=== PATIENT | female | born 1995 | race Two or more races ===

== ENCOUNTER 2019-06-27 16:50 | Emergency (ER) | payer OTHER ==
[2019-06-27 17:40] VITALS: BP 123/69
[2019-06-27] MEDS ORDERED: ACETAMINOPHEN 325 MG TABLET PO ONE (17:41)
[2019-06-27] MEDS ORDERED: ONDANSETRON 4 MG TAB.RAPDIS PO ONE (17:41)
[2019-06-27] MEDS ORDERED: LORATADINE 10 MG TABLET PO ONE (17:41)
--- NOTE | 2019-06-27 17:46 | ER Document Report ---
ED Headache - General Chief Complaint: Headache >24 hrs old Stated Complaint: HEADACHE Time Seen by Provider: 06/27/19 17:38 Mode of Arrival: Ambulatory Information source: Patient Notes: 23-year-old female presented to ED for complaint of headache. She does have signs and symptoms of upper respiratory infection and she is 20 weeks . She states she did take 2 Tylenol a couple hours ago. She states [place] [facility] [place] She states she has had a headache off and on for 3 days. She states she has had Tylenol twice during those 3 days to Tylenol each time. I have discussed with her after doing her assessment that I would give her 1 more Tylenol some Claritin and Zofran now but she was to call her [facility] tomorrow to schedule a follow-up visit. Patient is alert oriented respirations regular nonlabored speaking in full sentences. - HPI Patient complains to provider of: Headache, "Migraine" Patient reports: Hx chronic headaches, Other - 20 weeks Onset: Other Onset was: Gradual Timing: Better Quality of pain: Other - Headache feels heavy Severity: Moderate Pain Level: 3 Associated symptoms: Other - Runny nose Exacerbated by: denies: Light, Noise, Movement, Position Similar symptoms previously: Yes Recently seen / treated by doctor: Yes - Related Data Allergies/Adverse Reactions: No Known Allergies Allergy (Verified 06/27/19 17:47) Past Medical History - General Information source: Patient - Social History Smoking Status: Never Smoker Frequency of alcohol use: None Drug Abuse: None Occupation: None Lives with: Family Family History: Reviewed & Not Pertinent - Past Medical History Cardiac Medical History: Reports: None Pulmonary Medical History: Reports: None EENT Medical History: Reports: None Neurological Medical History: Reports: Hx Migraine Endocrine Medical History: Reports: None Renal/ Medical History: Reports: None Malignancy Medical History: Reports: None GI Medical History: Reports: None Musculoskeletal Medical History: Reports None Skin Medical History: Reports None Psychiatric Medical History: Reports: None Traumatic Medical History: Reports: None Infectious Medical History: Reports: None Surgical Hx: Negative Past Surgical History: Reports: None - Immunizations Immunizations up to date: Yes Hx Diphtheria, Pertussis, Tetanus Vaccination: Yes Review of Systems - Review of Systems Constitutional: Recent illness EENT: Nose discharge Cardiovascular: No symptoms reported Respiratory: No symptoms reported Gastrointestinal: No symptoms reported Genitourinary: No symptoms reported Female Genitourinary: No symptoms reported Musculoskeletal: No symptoms reported Skin: No symptoms reported Hematologic/Lymphatic: No symptoms reported Neurological/Psychological: Headaches. denies: Weakness, Gait changes, Numbness, Tingling -: Yes All other systems reviewed and negative Physical Exam - Vital signs Vitals: Temp Pulse Resp BP Pulse Ox 98.7 F 76 18 123/69 98 06/27/19 17:36 06/27/19 17:36 06/27/19 17:36 06/27/19 17:36 06/27/19 17:36 Interpretation: Normal - General General appearance: Appears well, Alert - HEENT Head: Normocephalic, Atraumatic Eyes: Normal Pupils: PERRL Ears: Normal, Tragus laceration Tympanic membrane: Normal Sinus: Normal Nasal: Purulent discharge, Swelling Mouth/Lips: Normal Mucous membranes: Normal Pharynx: Post nasal drainage Neck: Normal - Respiratory Respiratory status: No respiratory distress Chest status: Nontender Breath sounds: Normal Chest palpation: Normal - Cardiovascular Rhythm: Regular Heart sounds: Normal auscultation Murmur: No - Abdominal Inspection: Normal Distension: No distension Bowel sounds: Normal Tenderness: Nontender Organomegaly: No organomegaly - Back Back: Normal, Nontender - Extremities General upper extremity: Normal inspection, Nontender, Normal color, Normal ROM, Normal temperature General lower extremity: Normal inspection, Nontender, Normal color, Normal ROM, Normal temperature, Normal weight bearing. No: Soraya's sign - Neurological Neuro grossly intact: Yes Cognition: Normal Orientation: AAOx4 Jorge Coma Scale Eye Opening: Spontaneous Jorge Coma Scale Verbal: Oriented Stella Coma Scale Motor: Obeys Commands Jorge Coma Scale Total: 15 Speech: Normal Motor strength normal: LUE, RUE, LLE, RLE Sensory: Normal - Psychological Associated symptoms: Normal affect, Normal mood - Skin Skin Temperature: Warm Skin Moisture: Dry Skin Color: Normal Course - Re-evaluation Re-evalutation: 06/27/19 20:41 After performing a Medical Screening Examination, I estimate there is LOW risk for ACUTE CORONARY SYNDROME, RESPIRATORY FAILURE, SEPSIS OR MENINGITIS, thus I consider the discharge disposition reasonable. I have reevaluated this patient multiple times and no significant life threatening changes are noted. The patient and I have discussed the diagnosis and risks, and we agree with discharging home with close follow-up. We also discussed returning to the Emergency Department immediately if new or worsening symptoms occur. We have discussed the symptoms which are most concerning (e.g., changing or worsening pain, trouble swallowing or breathing, neck stiffness, fever) that necessitate immediate return. - Vital Signs Vital signs: Temp Pulse Resp BP Pulse Ox 98.7 F 76 18 123/69 98 06/27/19 17:36 06/27/19 17:36 06/27/19 17:36 06/27/19 17:36 06/27/19 17:36 Discharge - Discharge Clinical Impression: URI (upper respiratory infection) Qualifiers: URI type: unspecified viral URI Qualified Code(s): J06.9 - Acute upper respiratory infection, unspecified Headache Qualifiers: Headache type: unspecified Headache chronicity pattern: unspecified pattern Intractability: not intractable Qualified Code(s): R51 - Headache Condition: Stable Disposition: HOME, SELF-CARE Additional Instructions: Headache The physician does not feel that the headache you are experiencing has a serious underlying cause. Most headaches are due to emotional stress, with resultant muscle tension (tension headache). Occasionally, headaches are secondary to changes in the blood vessels of the scalp (vascular headache and migraine headache). Sometimes, a headache is the first symptom of another developing illness, such as a viral infection. You have no evidence of stroke, bleeding, meningitis, or other serious cause of your headache. The treatment of headaches varies with the severity and cause of the pain. Not all headaches need pain shots. In fact, there is evidence that using narcotics for headaches may make them worse in the long run. The physician will determine the therapy that's in your best interest. If you develop a fever, if the headache is different from any you've previously experienced, or if the headache progressively worsens, then call your physician at once or go to the emergency room. You have been Claritin 10 mg Tylenol 325 mg. These are all [id number] medications for cough cold congestion. Please use saline spray to your nose 2 sprays each nostril. You could also use salt soda solution gargles. These will help to remove the drainage from the back your throat. Salt and soda solution gargle 1 quart of water 1 tablespoon of salt 1 teaspoon of baking soda Mixed 3 ingredients together and boil for 1 minute Placed in a covered quart jar Use 1/2 ounce of cold solution to gargle 3 times a day USE OF ACETAMINOPHEN (Tylenol): Acetaminophen may be taken for pain relief or fever control. It's much safer than aspirin, offering a wider range of "safe" dosages. It is safe during . Some brand names are Tylenol, Panadol, Datril, Anacin 3, Tempra, and Liquiprin. Acetaminophen can be repeated every four hours. The following are maximum recommended dosages: >89 pounds or adults 650 mg to 900 mg Acetaminophen can be repeated every four hours. Maximum dose not to exceed 4000 mg a day. Antinausea Medication You have been given a medication to suppress nausea and vomiting. This type of medication can be given as a shot, pill, or suppository. It will usually last for many hours. Pills and shots usually last six to eight hours, suppositories last about 12 hours. For the typical illness, only one or two doses of the medication may be necessary. Mild lightheadedness may occur. This type of medicine can cause drowsiness. Do not drive or operate dangerous machinery while under its influence. Do not mix with alcohol. See your doctor at once if you have muscle spasms or tightness, or u ncontrollable motions (particularly of the neck, mouth, or jaw). Persistent vomiting or severe lightheadedness should also be evaluated by the physician. FOLLOW-UP CARE: If you have been referred to a physician for follow-up care, call the physicians office for an appointment as you were instructed or within the next two days. If you experience worsening or a significant change in your symptoms, notify the physician immediately or return to the Emergency Department at any time for re-evaluation. Please follow-up with your [facility] in the next 24 to 48 hours and get a follow-up visit due to your headache during . Your blood pressure was 123/69. You do have a upper respiratory infection with a headache. You have been treated with Claritin and Tylenol and Zofran.
== END 2019-06-27 18:00 | disposition home or self-care (01) ==
LOC: ER 16:50
DX: O26.892 Other specified pregnancy related conditions, second trimester (principal); J06.9 Acute upper respiratory infection, unspecified; R51 Headache; Z3A.20 20 weeks gestation of pregnancy
CPT/HCPCS: 99283; S0119

== ENCOUNTER 2019-09-14 14:27 | Inpatient (IN) | payer OTHER ==
[2019-09-14] MEDS ORDERED: RINGERS SOLUTION,LACTATED 1,000 ML IV ONE (14:43)
[2019-09-14 15:22] LABS: ABSOLUTE LYMPHOCYTES (AUTO) 2.3 10^3/uL (0.5-4.7); ABSOLUTE MONOCYTES (AUTO) 1.5 10^3/uL (0.1-1.4); ABSOLUTE NEUT (AUTO) 15.3 10^3/uL (1.7-8.2); BASOPHILS % (AUTO) 0.1 % (0-2); HEMATOCRIT 32.6 % (36.0-47.0); HEMOGLOBIN 11.3 g/dL (12.0-15.5); LYMPHOCYTES % (AUTO) 11.9 % (13-45); MEAN CORPUSCULAR HEMOGLOBIN 30.1 pg (27.0-33.4); MEAN CORPUSCULAR HGB CONC 34.7 g/dL (32.0-36.0); MEAN CORPUSCULAR VOLUME 87 fl (80-97); MONOCYTES % (AUTO) 7.7 % (3-13); PLATELET COUNT 338 10^3/uL (150-450); RED BLOOD COUNT 3.76 10^6/uL (3.72-5.28); RED CELL DISTRIBUTION WIDTH 12.8 % (11.5-14.0); SEGMENTED NEUTROPHILS % (AUTO) 80.3 % (42-78); TOTAL CELLS COUNTED % (AUTO) 100 %
[2019-09-14 15:43] LABS: ALBUMIN 3.4 g/dL (3.5-5.0); ALKALINE PHOSPHATASE 115 U/L (38-126); ANION GAP 7 (5-19); ASPARTATE AMINO TRANSFERASE 43 U/L (14-36); BILIRUBIN,TOTAL 0.2 mg/dL (0.2-1.3); BLOOD UREA NITROGEN 11 mg/dL (7-20); CALCIUM 8.8 mg/dL (8.4-10.2); CARBON DIOXIDE 23 mmol/L (22-30); CHLORIDE 107 mmol/L (98-107); GLUCOSE 95 mg/dL (75-110); POTASSIUM 4.6 mmol/L (3.6-5.0); TOTAL PROTEIN 6.7 g/dL (6.3-8.2); URIC ACID 5.8 mg/dL (2.5-6.2)
--- NOTE | 2019-09-14 15:56 | Admission Physical ---
Datetime Report Generated by CPN: 09/14/2019 15:55 CURRENT ADMISSION Chief Complaint: Other Chief Complaint Other: at 33.0 wks EGA who was a transfer from [facility] for NICU availability as they feel she will requrie deliver for preeclampsia with severe features and their NICU is on diversion. Pt is asymptomatic currently. NO BELTRAN, CP, SOB, RUQ, N/V or vision changes. Reports good FM Denies hx of elevated blood pressure 20 weeks. History one SAB Admit Impression : Intact Membranes; Medical Complication Admit Plan: Admit to Unit ALLERGIES Medication Allergies: No Medication Allergies: No Known Allergies (09/14/2019) Latex: No Latex Allergies Food Allergies: none Environmental Allergies: none OBSTETRICAL HISTORY : 2 Para: 0 Term: 0 : 0 SAB: 1 IAB: 0 Ectopic: 0 Livin Cesareans: 0 VBACs: 0 Multiple Births: 0 Gestational Diabetes: No Rh Sensitization: No Incompetent Cervix: No JULIANA: No Infertility: No ART Treatment: No Uterine Anomaly: No IUGR: No Hx Previous C/S: No Macrosomia: No Hx Loss/Stillborn: No PIH: No Hx : No Placenta Previa/Abruption: No Depression/PP Depression: No PTL/PROM: No Post Hemorrhage: No Current Procedures: Ultrasound; NST Obstetrical History Comments: G1- SAB G2- Current.pre-eclampsia SEE RECORDS Alcohol: No Marijuana : No Cocaine: No Other Illicit Drugs: No Cigarettes: Never Smoker. [id number] MEDICAL HISTORY Diabetes: No Blood Transfusion: No Pulmonary Disease (Asthma, TB): No Breast Disease: No Hypertension: No [employer] Surgery: No Heart Disease: No Hosp/Surgery: No Autoimmune Disorder: No Anesthetic Complications: No Kidney Disease: No Abnormal Pap Smear: No Neuro/Epilepsy: No Psychiatric Disorders: No Other Medical Diseases: No Hepatitis/Liver Disease: No Significant Family History: No Varicosities/Phlebitis: No Trauma/Violence : No Thyroid Dysfunction: No INFECTIOUS HISTORY Gonorrhea: No Genital Herpes: No Chlamydia: No Tuberculosis: No Syphilis: No Hepatitis: No HIV/AIDS Exposure: No Rash or Viral Illness: No HPV: No PHYSICAL EXAM General: Normal HEENT: Normal Neurologic: Normal Thyroid: Normal Heart: Normal Lungs: Normal Breast: Normal Back: Normal Abdomen: Normal Genitourinary Exam: Normal Extremities: Normal DTRs: Normal Pelvic Type: Adequate Physical Exam Comments: Lungs clear bilaterally, heart rate normal, S1S2, RRR. Reflexes 3/4 on right and 2/4 on left. No clonus Abdomen soft, NTTP. No pain in RUQ on palpation Vital Signs: Reviewed FETUS A Monitoring: External US FHR- Baseline: 130 Variability: Moderate 6-25bpm Accelerations: 15X15 Decelerations: None Presentation: Compound Admit Comment: at 33.0 wks, a transfer from [facility] d/t they are on NICU diversion and she has had elvated b/p's and preeclampsia -Admit to LDR -CEFM and toco -maintain IV access -Had 24 hours Mag sulfate IV but d/c yesterday -Repeat PIH labs now -P:C ratio from [facility] was 0.22 and no 24 hour urine protein -Serial b/p's every hour. On admission b/p in 140-150s systolic and normal diastolics -GBS negative -S/p Betamenthasone x2 , last dose 09/13/19 at 1600 -Continue close observation while 24 hour being completed. If preE with severe features and remains asymptomic with no severe pressures will plan delivery after 34 wks EGA PLANS FOR LABOR AND DELIVERY Labor and Delivery: None Pain Management: Epidural Feeding Preference: Both Benefit of Breast Feed Discussed: Yes Circumcision: N/A INFORMED CONSENT Informed Consent Obtained: Vaginal Delivery; Risks, Benefits and Alternatives Discussed Signature: with User ID: Mode : with User ID: Mode
[2019-09-14] MEDS: RINGERS SOLUTION,LACTATED 1,000 ML IV PRN (17:18)
--- NOTE | 2019-09-14 17:38 | Warning Signs in Babies ---
VOD Warning Signs Datetime Report Generated by N: 09/14/2019 17:38 VOD#[id number] -Warning Signs in Babies: Viewed with Parent(s)/Family (09/14/2019 17:38:Jonathan Kelly RN)
--- NOTE | 2019-09-14 19:43 | Non Stress Test Report ---
Non Stress Test Datetime Report Generated by CPN: 09/14/2019 19:43 DEMOGRAPHIC EGA NST: 33.0 INDICATION Indication for Study (NST) Other: Severe Pre-E from [employer] MONITORING Monitor Explained: Monitor Explained; Test Explained; Patient Verbalized Understanding Time on Monitor: 09/14/2019 14:32 Time off Monitor: 09/14/2019 19:37 NST Duration: 305 NST INTERVENTIONS NST Interventions: PO Hydration; Meal Given; Reposition Patient Physician Notified NST: Dr. Mckenzie BABY A: [id number] BABY A Movement : Present Contraction Frequency : Irregular FHR Baseline : 135 Accelerations : 15X15 Decelerations : None Variability : Moderate 6-25bpm NST Review: Meets Criteria for Reactive NST NST Review and Verified By : Richy NAVAT Results: Reactive NST REPORT Report Trigger: Send Report
[2019-09-15] MEDS ORDERED: LABETALOL HCL 200 MG TABLET PO SCH ×2 (04:00→14:00)
[2019-09-15] MEDS ORDERED: LABETALOL HCL 200 MG TABLET ONE ×2 (04:05→09:02)
[2019-09-15] MEDS ORDERED: LABETALOL HCL INJ 20 MG/4 ML DISP.SYRIN IV ONE ×4 (04:05→05:51)
[2019-09-15] MEDS: RINGERS SOLUTION,LACTATED 1,000 ML IV PRN (04:18)
[2019-09-15 06:30] LABS: ABSOLUTE LYMPHOCYTES (AUTO) 2.9 10^3/uL (0.5-4.7); ABSOLUTE MONOCYTES (AUTO) 1.5 10^3/uL (0.1-1.4); BASOPHILS % (AUTO) 0.2 % (0-2); EOSINOPHILS % (AUTO) 0.1 % (0-6); HEMATOCRIT 32.7 % (36.0-47.0); HEMOGLOBIN 11.2 g/dL (12.0-15.5); LYMPHOCYTES % (AUTO) 17.6 % (13-45); MEAN CORPUSCULAR HGB CONC 34.2 g/dL (32.0-36.0); MEAN CORPUSCULAR VOLUME 88 fl (80-97); MONOCYTES % (AUTO) 9.1 % (3-13); PLATELET COUNT 330 10^3/uL (150-450); RED BLOOD COUNT 3.72 10^6/uL (3.72-5.28); RED CELL DISTRIBUTION WIDTH 12.6 % (11.5-14.0); TOTAL CELLS COUNTED % (AUTO) 100 %; WHITE BLOOD COUNT 16.5 10^3/uL (4.0-10.5)
[2019-09-15 06:57] LABS: ALBUMIN 3.1 g/dL (3.5-5.0); ALKALINE PHOSPHATASE 112 U/L (38-126); ANION GAP 8 (5-19); ASPARTATE AMINO TRANSFERASE 44 U/L (14-36); BILIRUBIN,DIRECT 0.1 mg/dL (0.0-0.4); BILIRUBIN,TOTAL 0.4 mg/dL (0.2-1.3); BLOOD UREA NITROGEN 10 mg/dL (7-20); CALCIUM 8.2 mg/dL (8.4-10.2); CARBON DIOXIDE 21 mmol/L (22-30); CHLORIDE 108 mmol/L (98-107); GLUCOSE 78 mg/dL (75-110); POTASSIUM 4.2 mmol/L (3.6-5.0); TOTAL PROTEIN 6.2 g/dL (6.3-8.2); URIC ACID 5.1 mg/dL (2.5-6.2)
[2019-09-15] MEDS ORDERED: HYDRALAZINE HCL INJ/PF 20 MG/1 ML SDV ONE (07:01)
[2019-09-15] MEDS ORDERED: NIFEDIPINE 30 MG TAB.ER.24 PO ONE ×3 (07:03→08:03)
[2019-09-15] MEDS ORDERED: HYDRALAZINE HCL INJ/PF 20 MG/1 ML SDV IV ONE (08:00)
[2019-09-15] MEDS ORDERED: NIFEDIPINE 30 MG TAB.ER.24 PO SCH (08:00)
--- NOTE | 2019-09-15 08:26 | Non Stress Test Report ---
Non Stress Test Datetime Report Generated by CPN: 09/15/2019 08:26 DEMOGRAPHIC EGA NST: 33.1 INDICATION Indication for Study (NST) Other: Dr orders/ HTN VITAL SIGNS Temperature - NST: 97.4 Pulse - NST: 67 RESP - NST: 18 NBPSYS NST: 151 NBPDIA NST: 89 MONITORING Monitor Explained: Monitor Explained; Test Explained; Patient Verbalized Understanding Time on Monitor: 09/15/2019 08:00 Time off Monitor: 09/15/2019 08:21 NST Duration: 21 NST INTERVENTIONS NST Interventions: PO Hydration Physician Notified NST: Dr Saldivar BABY A Movement : Present Contraction Frequency : none FHR Baseline : 135 Accelerations : 15X15 Decelerations : None Variability : Moderate 6-25bpm NST Review: Meets Criteria for Reactive NST NST Review and Verified By : Vicente Flores RN NST Results: Reactive NST REPORT Report Trigger: Send Report
[2019-09-15] MEDS: LABETALOL HCL 200 MG TABLET PO SCH ×3 (09:05→21:53)
--- NOTE | 2019-09-15 13:01 | RADIOLOGY REPORT (SQ) ---
EXAM DESCRIPTION: U/S OB LIMITED IMAGES COMPLETED DATE/TIME: 09/15/2019 12:42 pm REASON FOR STUDY: presentation, weight, fluid COMPARISON: None. TECHNIQUE: Limited transabdominal grayscale ultrasound for evaluation of specific requested obstetri skye parameters. LIMITATIONS: None. FINDINGS: EGA: 33 week 4 day. EPIFANIO: 10/30/2019. EFW: 2135 g. PERCENTILE: 44%. MARTIN: 15.4 cm. FHR: 135 beats per minute. PRESENTATION: Cephalic. PLACENTA: Not assessed ANATOMY: Not assessed OTHER: No other significant findings. IMPRESSION: LIMITED OBSTETRICAL ULTRASOUND WITH MEASURED PARAMETERS DELINEATED ABOVE. Trimester of : Third trimester - 28 weeks to delivery. TECHNICAL DOCUMENTATION: JOB ID: [id number] 2010 [employer]- All Rights Reserved Reading location - IP/workstation name: [email or web address]
[2019-09-15 17:24] LABS: URINE PROTEIN 48.2 mg/dL (<12)
[2019-09-15 17:30] LABS: 24 HOUR URINE PROTEIN RESULT 1735 mg/day (42-225); URINE AMPHETAMINES SCREEN NEGATIVE; URINE BARBITURATES SCREEN NEGATIVE; URINE BENZODIAZEPINES SCREEN NEGATIVE; URINE COCAINE SCREEN NEGATIVE; URINE MARIJUANA (THC) SCREEN NEGATIVE; URINE METHADONE SCREEN NEGATIVE; URINE PHENCYCLIDINE SCREEN NEGATIVE
[2019-09-15 17:34] LABS: UR PRO/CREAT RATIO RESULT 0.6 mg/mg (0.0-0.2); URINE CREATININE 90.3 mg/dL (16-327); URINE PROTEIN 49.9 mg/dL (<12)
[2019-09-16] MEDS: LABETALOL HCL 200 MG TABLET PO SCH ×3 (05:14→23:09)
[2019-09-16] MEDS: NIFEDIPINE 30 MG TAB.ER.24 PO SCH (09:46)
[2019-09-16 11:56] LABS: HEMATOCRIT 32.6 % (36.0-47.0); HEMOGLOBIN 11.1 g/dL (12.0-15.5); MEAN CORPUSCULAR HGB CONC 34.1 g/dL (32.0-36.0); MEAN CORPUSCULAR VOLUME 88 fl (80-97); PLATELET COUNT 292 10^3/uL (150-450); RED BLOOD COUNT 3.72 10^6/uL (3.72-5.28); RED CELL DISTRIBUTION WIDTH 12.6 % (11.5-14.0); WHITE BLOOD COUNT 13.6 10^3/uL (4.0-10.5)
[2019-09-16] MEDS: PRENATAL VITAMIN W DHA CAPSULE PO SCH (12:02)
[2019-09-16 12:15] LABS: ALKALINE PHOSPHATASE 106 U/L (38-126); ANION GAP 5 (5-19); ASPARTATE AMINO TRANSFERASE 30 U/L (14-36); BILIRUBIN,DIRECT 0.1 mg/dL (0.0-0.4); BILIRUBIN,TOTAL 0.3 mg/dL (0.2-1.3); BLOOD UREA NITROGEN 11 mg/dL (7-20); CALCIUM 8.2 mg/dL (8.4-10.2); CARBON DIOXIDE 22 mmol/L (22-30); CHLORIDE 107 mmol/L (98-107); GLUCOSE 74 mg/dL (75-110); POTASSIUM 4.3 mmol/L (3.6-5.0); URIC ACID 4.9 mg/dL (2.5-6.2)
[2019-09-16 12:26] LABS: ABSOLUTE LYMPHOCYTES# (MANUAL) 3.4 10^3/uL (0.5-4.7); ABSOLUTE MONOCYTES # (MANUAL) 1.8 10^3/uL (0.1-1.4); BASOPHILS % (MANUAL) 0 % (0-2); EOSINOPHILS % (MANUAL) 1 % (0-6); LYMPHOCYTES % (MANUAL) 21 % (13-45); MONOCYTES % (MANUAL) 13 % (3-13); SEGMENTED NEUTROPHILS % (MAN) 61 % (42-78); TOTAL CELLS COUNTED 100
[2019-09-16 12:27] LABS: ANISOCYTOSIS SLIGHT; POLYCHROMASIA SLIGHT
[2019-09-16 12:28] LABS: PLATELET COMMENT ADEQUATE
--- NOTE | 2019-09-16 17:51 | PDOC PROGRESS REPORT ---
Subjective Progress Note for:: 09/16/19 Subjective:: denies BELTRAN/blurry vision/RUQ pain. Reason For Visit: IUP 33 WEEKS ELEVATED BLOOD PRESSURES IN Physical Exam - Physical Exam Vital Signs: Temp Pulse Resp BP Pulse Ox 98.5 F 85 18 142/78 H 100 09/16/19 15:15 09/16/19 15:15 09/16/19 15:15 09/16/19 15:15 09/16/19 15:15 Intake & Output 09/15/19 09/16/19 09/17/19 06:59 06:59 06:59 Intake Total 1000 1000 Balance 1000 1000 Weight 98.6 kg 104 kg General appearance: PRESENT: no acute distress, well-developed, well-nourished Head exam: PRESENT: atraumatic, normocephalic Respiratory exam: PRESENT: clear to auscultation jamey, symmetrical, unlabored Pulses: PRESENT: normal dorsalis pedis pul, +2 pedal pulses bilateral Vascular exam: PRESENT: normal capillary refill GI/Abdominal exam: PRESENT: normal bowel sounds, soft. ABSENT: distended, guarding, mass, organolmegaly, rebound, tenderness Rectal exam: PRESENT: deferred Extremities exam: PRESENT: full ROM. ABSENT: calf tenderness, clubbing, pedal edema Musculoskeletal exam: PRESENT: ambulatory Neurological exam: PRESENT: alert, awake, oriented to person, oriented to place, oriented to time, oriented to situation, CN II-XII grossly intact. ABSENT: motor sensory deficit Psychiatric exam: PRESENT: agitated Skin exam: PRESENT: dry, intact, warm. ABSENT: cyanosis, rash Result Laboratory Results: 09/16/19 11:48 09/16/19 11:48 09/16/19 09/16/19 11:48 11:48 WBC 13.6 H RBC 3.72 Hgb 11.1 L Hct 32.6 L MCV 88 MCH 30.0 MCHC 34.1 RDW 12.6 Plt Count 292 Seg Neutrophils % Not Reportable Sodium 134.3 L Potassium 4.3 Chloride 107 Carbon Dioxide 22 Anion Gap 5 BUN 11 Creatinine 0.68 Est GFR ( Amer) > 60 Glucose 74 L Uric Acid 4.9 Calcium 8.2 L Total Bilirubin 0.3 AST 30 Alkaline Phosphatase 106 Total Protein 6.0 L Albumin 3.0 L Impressions: Obstetrics Ultrasound 09/15/19 11:24 IMPRESSION: LIMITED OBSTETRICAL ULTRASOUND WITH MEASURED PARAMETERS DELINEATED ABOVE. Trimester of : Third trimester - 28 weeks to delivery. Status: Imported from PACS Assessment & Plan - Diagnosis (1) Pre-eclampsia Qualifiers: Trimester: third trimester Qualified Code(s): O14.93 - Unspecified pre- eclampsia, third trimester Is this a current diagnosis for this admission?: Yes Plan: 33+2ega No symptoms. Reviewed labs with patient and dx of of PreE. BPs within mild range with Dual agents. Procardia 60mg po daily and Labetalol 200mg po TID. will change patient to a more comfortable room. Reviewed would like to try to get patient to 34 wks if possible: If need to retreat with IV antihypertensives, or indications, or evidence of worsening labs then may need to move to delivery sooner. Daily labs. Reviewed plan of care with Dr. Michele Loyd with [facility]. She agrees with plan to try to keep unless above noted need to deliver sooner. Steroid complete. GBS negative. Continue with observation. reviewed would need magensium in labor. - Time Time Spent with patient: 15-24 minutes Medications reviewed and adjusted accordingly: Yes Anticipated discharge: Home Within: Other - after delivery
[2019-09-17] MEDS: LABETALOL HCL 200 MG TABLET PO SCH ×3 (05:42→21:08)
--- NOTE | 2019-09-17 08:50 | PDOC PROGRESS REPORT ---
Subjective Progress Note for:: 09/17/19 Subjective:: Doing well today. Reason For Visit: IUP 33 WEEKS ELEVATED BLOOD PRESSURES IN Physical Exam - Physical Exam Vital Signs: Temp Pulse Resp BP Pulse Ox 98.5 F 95 16 130/88 H 100 09/17/19 07:41 09/17/19 07:41 09/17/19 07:41 09/17/19 07:41 09/17/19 07:41 Intake & Output 09/16/19 09/17/19 09/18/19 06:59 06:59 06:59 Intake Total 1000 Balance 1000 Weight 104 kg 99.8 kg General appearance: PRESENT: no acute distress, well-developed, well-nourished Cardiovascular exam: PRESENT: RRR. ABSENT: diastolic murmur, rubs, systolic murmur Pulses: PRESENT: normal dorsalis pedis pul, +2 pedal pulses bilateral Vascular exam: PRESENT: normal capillary refill Extremities exam: PRESENT: full ROM. ABSENT: calf tenderness, clubbing, pedal edema Result Laboratory Results: 09/16/19 11:48 09/16/19 11:48 09/16/19 09/16/19 11:48 11:48 WBC 13.6 H RBC 3.72 Hgb 11.1 L Hct 32.6 L MCV 88 MCH 30.0 MCHC 34.1 RDW 12.6 Plt Count 292 Seg Neutrophils % Not Reportable Sodium 134.3 L Potassium 4.3 Chloride 107 Carbon Dioxide 22 Anion Gap 5 BUN 11 Creatinine 0.68 Est GFR ( Amer) > 60 Glucose 74 L Uric Acid 4.9 Calcium 8.2 L Total Bilirubin 0.3 AST 30 Alkaline Phosphatase 106 Total Protein 6.0 L Albumin 3.0 L Impressions: Obstetrics Ultrasound 09/15/19 11:24 IMPRESSION: LIMITED OBSTETRICAL ULTRASOUND WITH MEASURED PARAMETERS DELINEATED ABOVE. Trimester of : Third trimester - 28 weeks to delivery. Stable today. Assessment & Plan - Diagnosis (1) Pre-eclampsia Qualifiers: Trimester: third trimester Qualified Code(s): O14.93 - Unspecified pre- eclampsia, third trimester Is this a current diagnosis for this admission?: Yes Plan: Plan is to deliver at 34 weeks. - Time Time Spent with patient: Less than 15 minutes
[2019-09-17 09:01] LABS: ABSOLUTE BASOPHILS # (AUTO) 0.1 10^3/uL (0.0-0.2); ABSOLUTE LYMPHOCYTES (AUTO) 3.4 10^3/uL (0.5-4.7); ABSOLUTE MONOCYTES (AUTO) 0.9 10^3/uL (0.1-1.4); ABSOLUTE NEUT (AUTO) 8.7 10^3/uL (1.7-8.2); BASOPHILS % (AUTO) 0.4 % (0-2); EOSINOPHILS % (AUTO) 0.4 % (0-6); HEMATOCRIT 34.6 % (36.0-47.0); HEMOGLOBIN 11.9 g/dL (12.0-15.5); LYMPHOCYTES % (AUTO) 25.9 % (13-45); MEAN CORPUSCULAR HGB CONC 34.3 g/dL (32.0-36.0); MEAN CORPUSCULAR VOLUME 87 fl (80-97); MONOCYTES % (AUTO) 6.8 % (3-13); PLATELET COUNT 303 10^3/uL (150-450); RED BLOOD COUNT 3.96 10^6/uL (3.72-5.28); RED CELL DISTRIBUTION WIDTH 12.7 % (11.5-14.0); SEGMENTED NEUTROPHILS % (AUTO) 66.5 % (42-78); TOTAL CELLS COUNTED % (AUTO) 100 %; WHITE BLOOD COUNT 13.1 10^3/uL (4.0-10.5)
[2019-09-17 09:21] LABS: ALBUMIN 3.3 g/dL (3.5-5.0); ALKALINE PHOSPHATASE 119 U/L (38-126); ANION GAP 8 (5-19); ASPARTATE AMINO TRANSFERASE 29 U/L (14-36); BILIRUBIN,DIRECT 0.2 mg/dL (0.0-0.4); BILIRUBIN,TOTAL 0.4 mg/dL (0.2-1.3); BLOOD UREA NITROGEN 13 mg/dL (7-20); CALCIUM 8.7 mg/dL (8.4-10.2); CARBON DIOXIDE 19 mmol/L (22-30); CHLORIDE 108 mmol/L (98-107); GLUCOSE 114 mg/dL (75-110); TOTAL PROTEIN 6.4 g/dL (6.3-8.2); URIC ACID 5.3 mg/dL (2.5-6.2)
[2019-09-17] MEDS: PRENATAL VITAMIN W DHA CAPSULE PO SCH (11:05)
[2019-09-17] MEDS: NIFEDIPINE 30 MG TAB.ER.24 PO SCH (11:06)
[2019-09-17] MEDS ORDERED: ACETAMINOPHEN 325 MG TABLET ONE (19:49)
[2019-09-17] MEDS: ACETAMINOPHEN 325 MG TABLET PO PRN (19:52)
[2019-09-17] MEDS ORDERED: HYDRALAZINE HCL INJ/PF 20 MG/1 ML SDV IV ONE (20:30)
[2019-09-17] MEDS ORDERED: LABETALOL HCL 200 MG TABLET ONE (21:06)
[2019-09-17] MEDS ORDERED: MAG HYDROX/AL HYDROX/SIMETH SUSP 30 ML UDCUP ONE (21:29)
[2019-09-17] MEDS ORDERED: MAG HYDROX/AL HYDROX/SIMETH SUSP 30 ML UDCUP PO PRN (21:31)
[2019-09-18] MEDS: LABETALOL HCL 200 MG TABLET PO SCH ×3 (06:09→22:04)
--- NOTE | 2019-09-18 07:01 | PDOC PROGRESS REPORT ---
Subjective Progress Note for:: 09/18/19 Subjective:: She is doing well today. Reason For Visit: IUP 33 WEEKS ELEVATED BLOOD PRESSURES IN Physical Exam - Physical Exam Vital Signs: Temp Pulse Resp BP Pulse Ox 98.4 F 86 18 152/94 H 100 09/17/19 20:12 09/17/19 20:52 09/17/19 20:52 09/17/19 20:52 09/17/19 20:52 Intake & Output 09/16/19 09/17/19 09/18/19 06:59 06:59 06:59 Intake Total 1000 800 Balance 1000 800 Weight 104 kg 99.8 kg General appearance: PRESENT: no acute distress, well-developed, well-nourished Head exam: PRESENT: atraumatic, normocephalic Cardiovascular exam: PRESENT: RRR. ABSENT: diastolic murmur, rubs, systolic murmur Pulses: PRESENT: normal dorsalis pedis pul, +2 pedal pulses bilateral GI/Abdominal exam: PRESENT: normal bowel sounds, soft. ABSENT: distended, guarding, mass, organolmegaly, rebound, tenderness Result Laboratory Results: 09/17/19 08:44 09/17/19 08:44 09/17/19 09/17/19 08:44 08:44 WBC 13.1 H RBC 3.96 Hgb 11.9 L Hct 34.6 L MCV 87 MCH 30.0 MCHC 34.3 RDW 12.7 Plt Count 303 Seg Neutrophils % 66.5 Sodium 134.7 L Potassium 4.0 Chloride 108 H Carbon Dioxide 19 L Anion Gap 8 BUN 13 Creatinine 0.62 Est GFR ( Amer) > 60 Glucose 114 H Uric Acid 5.3 Calcium 8.7 Total Bilirubin 0.4 AST 29 Alkaline Phosphatase 119 Total Protein 6.4 Albumin 3.3 L Impressions: Obstetrics Ultrasound 09/15/19 11:24 IMPRESSION: LIMITED OBSTETRICAL ULTRASOUND WITH MEASURED PARAMETERS DELINEATED ABOVE. Trimester of : Third trimester - 28 weeks to delivery. Assessment & Plan - Diagnosis (1) Pre-eclampsia Qualifiers: Trimester: third trimester Qualified Code(s): O14.93 - Unspecified pre- eclampsia, third trimester Is this a current diagnosis for this admission?: Yes - Time Time Spent with patient: Less than 15 minutes - Plan Summary Plan Summary: At this time we will plan further observation.
[2019-09-18] MEDS ORDERED: NIFEDIPINE 30 MG TAB.ER.24 PO ONE ×2 (09:55→09:59)
[2019-09-18] MEDS ORDERED: PRENATAL VITAMIN W DHA CAPSULE PO ONE (09:55)
[2019-09-18] MEDS: NIFEDIPINE 30 MG TAB.ER.24 PO SCH (09:58)
[2019-09-18] MEDS: PRENATAL VITAMIN W DHA CAPSULE PO SCH (09:58)
[2019-09-18] MEDS ORDERED: LABETALOL HCL 200 MG TABLET ONE ×2 (13:59→22:00)
--- NOTE | 2019-09-18 19:48 | Non Stress Test Report ---
Non Stress Test Datetime Report Generated by CPN: 09/18/2019 19:48 DEMOGRAPHIC EGA NST: 33.4 INDICATION Indication for Study (NST) Other: pre term pre eclmpsia VITAL SIGNS Temperature - NST: 98.0 Pulse - NST: 99 RESP - NST: 16 NBPSYS NST: 132 NBPDIA NST: 81 MONITORING Monitor Explained: Monitor Explained; Test Explained; Patient Verbalized Understanding Time on Monitor: 09/18/2019 19:19 Time off Monitor: 09/18/2019 19:41 NST Duration: 22 NST INTERVENTIONS NST Interventions: PO Hydration; Reposition Patient Physician Notified NST: Dr. Garcia BABY A: [id number] BABY A Movement : Present Contraction Frequency : 0 FHR Baseline : 140 Accelerations : 15X15 Decelerations : None Variability : Moderate 6-25bpm NST Review: Meets Criteria for Reactive NST NST Review and Verified By : Siria Garcia RN NST Results: Reactive NST REPORT Report Trigger: Send Report
[2019-09-19] MEDS ORDERED: LABETALOL HCL 200 MG TABLET ONE ×2 (07:09→14:11)
[2019-09-19] MEDS: LABETALOL HCL 200 MG TABLET PO SCH ×3 (07:11→21:35)
[2019-09-19] MEDS ORDERED: PRENATAL VITAMIN W DHA CAPSULE PO ONE (10:01)
[2019-09-19] MEDS ORDERED: NIFEDIPINE 30 MG TAB.ER.24 PO ONE ×2 (10:01→10:05)
[2019-09-19] MEDS: PRENATAL VITAMIN W DHA CAPSULE PO SCH (10:04)
[2019-09-19] MEDS: NIFEDIPINE 30 MG TAB.ER.24 PO SCH (10:04)
--- NOTE | 2019-09-19 15:16 | PDOC PROGRESS REPORT ---
Subjective Progress Note for:: 09/19/19 Subjective:: patient doing well. no complaints today. denies Pre E ROS. bps have been labile but have mostly been in normal range. Reason For Visit: IUP 33 WEEKS ELEVATED BLOOD PRESSURES IN Physical Exam - Physical Exam Vital Signs: Temp Pulse Resp BP Pulse Ox 98.8 F 91 18 125/74 100 09/18/19 16:00 09/18/19 16:00 09/18/19 16:00 09/18/19 16:00 09/18/19 16:00 Intake & Output 09/18/19 09/19/19 09/20/19 06:59 06:59 06:59 Intake Total 800 Balance 800 General appearance: PRESENT: no acute distress, cooperative - Obstetrical Exam Fundal Height: 3/u - 4/u Tender: No Result Laboratory Results: 09/17/19 08:44 09/17/19 08:44 Impressions: Obstetrics Ultrasound 09/15/19 11:24 IMPRESSION: LIMITED OBSTETRICAL ULTRASOUND WITH MEASURED PARAMETERS DELINEATED ABOVE. Trimester of : Third trimester - 28 weeks to delivery. Assessment & Plan - Diagnosis (1) Pre-eclampsia Qualifiers: Trimester: third trimester Qualified Code(s): O14.93 - Unspecified pre- eclampsia, third trimester Is this a current diagnosis for this admission?: Yes - Time Time Spent with patient: Less than 15 minutes Anticipated discharge: Home Within: Other - with delivery - Inpatient Certification Based on my medical assessment, after consideration of the patient's comorbidities, presenting symptoms, or acuity I expect that the services needed warrant INPATIENT care.: Yes I certify that my determination is in accordance with my understanding of Medicare's requirements for reasonable and necessary INPATIENT services [42 CFR 412.3e].: Yes Medical Necessity: Need Close Monitoring Due to Risk of Patient Decompensation - Plan Summary Plan Summary: discussed with patient that in light of her labile blood pressures that she continues to hilario close monitoring. previously plan for 34 wk delivery however if patient continues to remain stable and bps are mostly normal range, will consider re-evaluation at 34 wks to try and mitigate afftects of delivery. I d/w patient that if we can prolong gestation safely that will allow for a shorter NICU stay after delivery. She voiced understanding. will re- evaluate at 34 weeks. today she is 33.5 wks. and is s/p ACS protocol and mag.
[2019-09-20] MEDS: LABETALOL HCL 200 MG TABLET PO SCH ×3 (05:00→21:53)
--- NOTE | 2019-09-20 08:52 | PDOC PROGRESS REPORT ---
Subjective Progress Note for:: 09/20/19 Subjective:: pt states she feels well no complainys Reason For Visit: IUP 33 WEEKS ELEVATED BLOOD PRESSURES IN Physical Exam - Physical Exam Vital Signs: Temp Pulse Resp BP Pulse Ox 98.3 F 89 18 139/88 H 100 09/20/19 07:32 09/20/19 07:32 09/20/19 07:32 09/20/19 07:32 09/20/19 07:32 Intake & Output 09/19/19 09/20/19 09/21/19 06:59 06:59 06:59 Intake Total 450 Balance 450 General appearance: PRESENT: no acute distress Respiratory exam: PRESENT: clear to auscultation jamey Cardiovascular exam: PRESENT: RRR Extremities exam: PRESENT: pedal edema Result Laboratory Results: 09/17/19 08:44 09/17/19 08:44 Impressions: Obstetrics Ultrasound 09/15/19 11:24 IMPRESSION: LIMITED OBSTETRICAL ULTRASOUND WITH MEASURED PARAMETERS DELINEATED ABOVE. Trimester of : Third trimester - 28 weeks to delivery. Assessment & Plan - Diagnosis (1) infant, weight unknown Is this a current diagnosis for this admission?: Yes (2) Pre-eclampsia Qualifiers: Trimester: third trimester Qualified Code(s): O14.93 - Unspecified pre- eclampsia, third trimester Is this a current diagnosis for this admission?: Yes - Time Time Spent with patient: Less than 15 minutes - Plan Summary Plan Summary: repeat pre-e labs and 24 hour urine, If pt remains stable consider home management.
[2019-09-20 09:41] LABS: ALBUMIN 2.8 g/dL (3.5-5.0); ALKALINE PHOSPHATASE 114 U/L (38-126); ANION GAP 5 (5-19); ASPARTATE AMINO TRANSFERASE 25 U/L (14-36); BILIRUBIN,TOTAL 0.3 mg/dL (0.2-1.3); BLOOD UREA NITROGEN 10 mg/dL (7-20); CALCIUM 8.4 mg/dL (8.4-10.2); CARBON DIOXIDE 23 mmol/L (22-30); CHLORIDE 107 mmol/L (98-107); GLUCOSE 111 mg/dL (75-110); POTASSIUM 3.9 mmol/L (3.6-5.0); TOTAL PROTEIN 5.7 g/dL (6.3-8.2); URIC ACID 5.8 mg/dL (2.5-6.2)
[2019-09-20] MEDS: PRENATAL VITAMIN W DHA CAPSULE PO SCH (09:54)
[2019-09-20] MEDS: NIFEDIPINE 30 MG TAB.ER.24 PO SCH (09:54)
[2019-09-20 17:30] LABS: ABSOLUTE BASOPHILS # (AUTO) 0.1 10^3/uL (0.0-0.2); ABSOLUTE EOSINOPHILS # (AUTO) 0.1 10^3/uL (0.0-0.6); ABSOLUTE LYMPHOCYTES (AUTO) 3.2 10^3/uL (0.5-4.7); ABSOLUTE MONOCYTES (AUTO) 0.8 10^3/uL (0.1-1.4); ABSOLUTE NEUT (AUTO) 8.3 10^3/uL (1.7-8.2); EOSINOPHILS % (AUTO) 0.7 % (0-6); HEMATOCRIT 35.4 % (36.0-47.0); HEMOGLOBIN 12.2 g/dL (12.0-15.5); LYMPHOCYTES % (AUTO) 25.2 % (13-45); MEAN CORPUSCULAR HEMOGLOBIN 29.7 pg (27.0-33.4); MEAN CORPUSCULAR HGB CONC 34.5 g/dL (32.0-36.0); MEAN CORPUSCULAR VOLUME 86 fl (80-97); MONOCYTES % (AUTO) 6.7 % (3-13); PLATELET COUNT 281 10^3/uL (150-450); RED BLOOD COUNT 4.11 10^6/uL (3.72-5.28); RED CELL DISTRIBUTION WIDTH 12.5 % (11.5-14.0); SEGMENTED NEUTROPHILS % (AUTO) 66.4 % (42-78); TOTAL CELLS COUNTED % (AUTO) 100 %; WHITE BLOOD COUNT 12.6 10^3/uL (4.0-10.5)
[2019-09-20] MEDS ORDERED: RINGERS SOLUTION,LACTATED 500 ML IV ONE (19:30)
--- NOTE | 2019-09-20 19:42 | Non Stress Test Report ---
Non Stress Test Datetime Report Generated by CPN: 09/20/2019 19:41 DEMOGRAPHIC EGA NST: 33.5 INDICATION Indication for Study (NST) Other: RNC VITAL SIGNS Temperature - NST: 98.8 Pulse - NST: 79 RESP - NST: 18 NBPSYS NST: 131 NBPDIA NST: 86 MONITORING Monitor Explained: Monitor Explained; Test Explained; Patient Verbalized Understanding Time on Monitor: 09/19/2019 07:16 Time off Monitor: 09/19/2019 07:57 NST Duration: 41 NST INTERVENTIONS NST Interventions: PO Hydration Physician Notified NST: Dr Mohsen BABY A: [id number] BABY A Movement : Present Contraction Frequency : None FHR Baseline : 145 Accelerations : 15X15 Decelerations : None Variability : Moderate 6-25bpm NST Review: Meets Criteria for Reactive NST NST Review and Verified By : Ruthy Cooper RNC NST Results: Reactive NST REPORT Report Trigger: Send Report
[2019-09-20] MEDS ORDERED: MAG HYDROX/AL HYDROX/SIMETH SUSP 30 ML UDCUP ONE (20:00)
[2019-09-20] MEDS ORDERED: ACETAMINOPHEN 325 MG TABLET ONE (20:09)
[2019-09-20] MEDS: ACETAMINOPHEN 325 MG TABLET PO PRN (20:10)
[2019-09-20] MEDS ORDERED: METOPROLOL TARTRATE PF/INJ 5 MG/5 ML SDV IV ONE ×4 (20:33→21:11)
[2019-09-20] MEDS ORDERED: LABETALOL HCL 200 MG TABLET ONE (21:41)
[2019-09-20] MEDS ORDERED: MORPHINE SULFATE 10 MG/ML INJ IV ONE (23:30)
[2019-09-20] MEDS ORDERED: MORPHINE SULFATE 10 MG/ML INJ ONE (23:31)
[2019-09-21] MEDS ORDERED: LABETALOL HCL 200 MG TABLET ONE ×2 (05:42→13:54)
[2019-09-21] MEDS: LABETALOL HCL 200 MG TABLET PO SCH ×2 (05:43→13:55)
[2019-09-21] MEDS ORDERED: PRENATAL VITAMIN W DHA CAPSULE PO ONE (10:10)
[2019-09-21] MEDS ORDERED: NIFEDIPINE 30 MG TAB.ER.24 PO ONE ×2 (10:11→10:16)
[2019-09-21] MEDS: NIFEDIPINE 30 MG TAB.ER.24 PO SCH (10:16)
[2019-09-21] MEDS: PRENATAL VITAMIN W DHA CAPSULE PO SCH (10:17)
--- NOTE | 2019-09-21 10:26 | Non Stress Test Report ---
Non Stress Test Datetime Report Generated by CPN: 09/21/2019 10:25 DEMOGRAPHIC EGA NST: 34.0 INDICATION Indication for Study (NST) Other: Dr orders VITAL SIGNS Temperature - NST: 97.7 Pulse - NST: 88 RESP - NST: 18 NBPSYS NST: 142 NBPDIA NST: 93 MONITORING Monitor Explained: Monitor Explained; Test Explained; Patient Verbalized Understanding Time on Monitor: 09/21/2019 09:51 Time off Monitor: 09/21/2019 10:12 NST Duration: 21 NST INTERVENTIONS NST Interventions: PO Hydration; Meal Given Physician Notified NST: Dr. Garcia BABY A Movement : Present Contraction Frequency : none FHR Baseline : 145 Accelerations : 15X15 Decelerations : None Variability : Moderate 6-25bpm NST Review: Meets Criteria for Reactive NST NST Review and Verified By : Susy Alan RN NST Results: Reactive NST REPORT Report Trigger: Send Report
[2019-09-21 11:17] LABS: 24 HOUR URINE PROTEIN RESULT 2825 mg/day (42-225); URINE CREATININE 38.8 mg/dL (16-327); URINE PROTEIN 97.4 mg/dL (<12)
[2019-09-21] MEDS ORDERED: ACETAMINOPHEN 325 MG TABLET ONE (16:54)
[2019-09-21] MEDS: ACETAMINOPHEN 325 MG TABLET PO PRN (16:55)
[2019-09-21] MEDS ORDERED: DINOPROSTONE 10 MG VAGINAL INSERT.SR ONE (19:54)
[2019-09-21] MEDS ORDERED: DINOPROSTONE 10 MG VAGINAL INSERT.SR PV ONE (20:52)
[2019-09-21] MEDS ORDERED: MAG HYDROX/AL HYDROX/SIMETH SUSP 30 ML UDCUP PO PRN (20:52)
[2019-09-21] MEDS ORDERED: ZOLPIDEM TARTRATE 5 MG TABLET PO PRN (20:52)
[2019-09-22] MEDS ORDERED: LABETALOL HCL 200 MG TABLET ONE ×4 (02:13→22:00)
[2019-09-22] MEDS: LABETALOL HCL 200 MG TABLET PO SCH ×4 (02:23→22:05)
[2019-09-22 09:14] LABS: HEMATOCRIT 35.8 % (36.0-47.0); HEMOGLOBIN 12.6 g/dL (12.0-15.5); MEAN CORPUSCULAR HEMOGLOBIN 30.4 pg (27.0-33.4); MEAN CORPUSCULAR HGB CONC 35.2 g/dL (32.0-36.0); MEAN CORPUSCULAR VOLUME 86 fl (80-97); PLATELET COUNT 216 10^3/uL (150-450); RED BLOOD COUNT 4.14 10^6/uL (3.72-5.28); WHITE BLOOD COUNT 10.6 10^3/uL (4.0-10.5)
[2019-09-22 09:34] LABS: ALBUMIN 3.5 g/dL (3.5-5.0); ALKALINE PHOSPHATASE 141 U/L (38-126); ANION GAP 9 (5-19); ASPARTATE AMINO TRANSFERASE 59 U/L (14-36); BILIRUBIN,TOTAL 0.6 mg/dL (0.2-1.3); BLOOD UREA NITROGEN 13 mg/dL (7-20); CALCIUM 8.9 mg/dL (8.4-10.2); CARBON DIOXIDE 20 mmol/L (22-30); CHLORIDE 105 mmol/L (98-107); GLUCOSE 105 mg/dL (75-110); TOTAL PROTEIN 6.9 g/dL (6.3-8.2)
[2019-09-22] MEDS ORDERED: DEXTROSE 40% GEL 15 GM TUBE PO PRN ×2 (09:45)
[2019-09-22] MEDS ORDERED: DEXTROSE 50%-WATER 25 GM/50 ML DISP.SYRIN IV PRN ×2 (09:45)
[2019-09-22] MEDS ORDERED: GLUCAGON,HUMAN RECOMB 1 MG INJ SUBCUT PRN (09:45)
[2019-09-22] MEDS ORDERED: NIFEDIPINE 30 MG TAB.ER.24 PO ONE ×2 (11:07→11:09)
[2019-09-22] MEDS: NIFEDIPINE 30 MG TAB.ER.24 PO SCH (11:08)
[2019-09-22] MEDS ORDERED: CITRIC ACID/SODIUM CITRATE ORAL SOLN 15 ML UDCUP PO ONE (14:55)
[2019-09-22] MEDS ORDERED: CEFAZOLIN 2 GM/D5W RTU 2 GM/50 ML RTUPB IV ONE (15:30)
[2019-09-22] MEDS ORDERED: CITRIC ACID/SODIUM CITRATE ORAL SOLN 15 ML UDCUP ONE (15:45)
[2019-09-22] MEDS ORDERED: EPHEDRINE SULFATE INJ 50 MG/1 ML AMPULE ONE (16:21)
[2019-09-22] MEDS ORDERED: PHENYLEPHRINE HCL INJ/PF 10 MG/1 ML SDV ONE (16:21)
[2019-09-22] MEDS ORDERED: OXYTOCIN 10 UNIT/ML VIAL ONE (16:21)
[2019-09-22] MEDS ORDERED: MIDAZOLAM 2 MG/2 ML INJ ONE (16:21)
[2019-09-22] MEDS ORDERED: KETOROLAC TROMETHAMINE INJ/PF 30 MG/1 ML SDV ONE (16:21)
[2019-09-22] MEDS ORDERED: FENTANYL CITRATE INJ/PF 100 MCG/2 ML AMPUL ONE (16:21)
[2019-09-22] MEDS ORDERED: OXYTOCIN/NORMAL SALINE 20 UNIT/1,000 ML RTUINJ ONE (16:22)
[2019-09-22] MEDS ORDERED: ONDANSETRON HCL INJ/PF 4 MG/2 ML SDV ONE (16:22)
[2019-09-22] MEDS ORDERED: CEFAZOLIN SODIUM 2 GM in DEXTROSE 5%-WATER 100 ML IV ONE (16:30)
[2019-09-22] MEDS ORDERED: MISOPROSTOL 0.2 MG TABLET ONE (17:11)
[2019-09-22] MEDS ORDERED: CARBOPROST TROMETHAMINE INJ 250 MCG/1 ML AMPULE ONE (17:11)
[2019-09-22] MEDS ORDERED: MAGNESIUM SULFATE 4 GM/100 ML RTUPB IV ONE ×2 (18:06→18:12)
[2019-09-22] MEDS ORDERED: MAGNESIUM SULFATE 20 GM/500 ML RTUINJ IV PRN (18:07)
[2019-09-22] MEDS ORDERED: HYDROMORPHONE HCL INJ/PF 2 MG/ML AMPULE IV PRN (18:08)
[2019-09-22] MEDS ORDERED: DIPH/PERTUSS(ACELL)/TETANUS VAC/PF 0.5 ML SYR (>=10YO) IM PRN (18:08)
[2019-09-22] MEDS ORDERED: ACETAMINOPHEN 325 MG TABLET PO PRN (18:08)
[2019-09-22] MEDS ORDERED: OXYTOCIN/NORMAL SALINE 20 UNIT/1,000 ML RTUINJ IV PRN (18:08)
[2019-09-22] MEDS ORDERED: ACETAMINOPHEN 1,000 MG/100 ML RTUPB IV PRN (18:08)
[2019-09-22] MEDS ORDERED: PROMETHAZINE HCL INJ 25 MG/1 ML VIAL IV PRN (18:08)
[2019-09-22] MEDS ORDERED: RINGERS SOLUTION,LACTATED 1,000 ML IV PRN (18:08)
[2019-09-22] MEDS ORDERED: MEASLES,MUMPS&RUBELLA VACC/PF 0.5 ML VIAL SUBCUT PRN (18:08)
[2019-09-22] MEDS ORDERED: SIMETHICONE 80 MG TAB.CHEW PO PRN (18:08)
[2019-09-22] MEDS ORDERED: MAGNESIUM SULFATE 20 GM/500 ML RTUINJ IV ONE (18:12)
--- NOTE | 2019-09-22 18:26 | Brief Operative Note ---
BRIEF OPERATIVE REPORT DATE OF SURGERY: 09/22/19 TIME OF SURGERY: 16:35 PREOPERATIVE DIAGNOSIS: PUND at 34+0ega, Severe PreE, Desires Elective Section POSTOPERATIVE DIAGNOSIS: ANJALI delivered SURGEON: ADRIEN ULLOA FINDINGS: VFI delivered at 1706, Apgars 8/9, weight 2100g, normal bilateral tubes/ovaries. Uterine atony resolved with 40 units pitocin, cytotec 1000mcg [place]. IVF 1000ml, UOP 100ml, QBL 700ml COMPLICATIONS: Uterine atony ESTIMATED BLOOD LOSS: 800ml TISSUE REMOVED OR ALTERED: placenta and cord - sent to pathology TECHNICAL PROCEDURE: Primary section
--- NOTE | 2019-09-22 18:47 | Operative Report ---
Operative Report DATE OF SURGERY: 09/22/19 PREOPERATIVE DIAGNOSIS: PUND at 34+0ega, Severe PreE, Desires Elective Section POSTOPERATIVE DIAGNOSIS: ANJALI - delivered OPERATION: Primary section SURGEON: ADRIEN ULLOA ANESTHESIA: Spinal TISSUE REMOVED OR ALTERED: placenta and cord sent to pathology COMPLICATIONS: uterine atony ESTIMATED BLOOD LOSS: 800 QUANTITATIVE BLOOD LOSS: 700 INTRAOPERATIVE FINDINGS: VFI delivered at 1706, Apgars 8/9, weight 2100g, normal bilateral tubes/ovaries. Uterine atony resolved with 40 units pitocin, cytotec 1000mcg [place]. IVF 1000ml, UOP 100ml, QBL 700ml PROCEDURE: Anesthesia: Spinal Anesthesia provider: [Eddie Ruvalcaba CRNA, Dr Gray] Indications: [] Procedure: The patient was taken to the operating room where spinal anesthesia was obtained and found to be adequate. She was then prepped and draped in the normal sterile fashion and placed in the dorsal supine position with a leftward tilt. A Pfannenstiel skin incision was then made and carried through to the underlying layers of the fascia with the scalpel. The fascia was incised in the midline and the incision extended laterally with the Piper scissors. The superior aspect of the fascial incision was then grasped with Westgate clamps elevated and the underlying rectus muscles dissected off [bluntly]. Attention was then turned to the inferior aspect of the fascial incision which in a similar fashion was grasped, tented up with Mariusz clamps, and the rectus muscles dissected off [bluntly]. The rectus muscles were then in the midline and the peritoneum at the amount identified and entered [bluntly]. The peritoneal incision was then extended superiorly and inferiorly with good visualization of the bladder. The bladder blade was inserted and the vesicouterine peritoneum identified grasped with Macanese pickups and entered sharply with the Metzenbaum scissors. This incision was then extended laterally with the Metzenbaum scissors and a bladder flap created digitally. The bladder blade was then reinserted and the lower uterine segment incised in a transverse fashion with the scalpel. The uterine incision was then extended bluntly. The bladder blade was removed and the 's head was delivered from cephalic presentation atraumatically. The nose and mouth were suctioned and the cord doubly clamped and cut. And the was handed off to waiting pediatricians. The placenta was then delivered spontaneously and the uterus exteriorized and cleared of all clots and debris. The uterine incision was then repaired with 1- 0 Vicryl in a running locked fashion. A second layer of the same suture was used to obtain hemostasis via imbrication of the initial layer. The bladder flap was then repaired with 3-0 chromic in a running fashion. The uterus was returned to the patient's abdomen and Interceed was placed overlying the uterine incision to prevent adhesions. The gutters were cleared of all clots and debris. All operative sites were noted to be hemostatic. The fascia was reapproximated with 0 Vicryl in a running fashion from each lateral edge to the midline. The skin was closed with 3-0 Monocryl in a running subcuticular fashion with overlying Dermabond for additional dressing as well as wound closure. The patient tolerated the procedure well. Sponge lap needle and instrument counts are correct -2. 2 g of Ancef were given prior to skin incision. The patient was taken to the recovery area awake and in stable condition.
[2019-09-22] MEDS ORDERED: MISOPROSTOL 0.1 MG TABLET PR ONE (19:10)
[2019-09-22] MEDS: PRENATAL VITAMIN W DHA CAPSULE PO SCH (19:32)
[2019-09-22] MEDS ORDERED: OXYCODONE-ACETAMINOPHEN 5-325 MG TABLET ONE (20:55)
[2019-09-22] MEDS: OXYCODONE-ACETAMINOPHEN 5-325 MG TABLET PO PRN (20:57)
--- NOTE | 2019-09-22 21:13 | Delivery Summary ---
Del Sum A-C Datetime Report Generated by CPN: 09/22/2019 21:13 DELIVERY PERSONNEL DELIVERY PERSONNEL: [id number] Delivery Doctor:: Yolanda Saldivar MD Anesthesiologist:: Lei Gray MD AIRFIELD ENGINEER OFFICER:: A Normile AIRFIELD ENGINEER OFFICER Labor and Delivery Nurse:: Ayana Olvera RN Link Machine Operator:: Ayana Olvera RN Neonatal Nurse Practitioner:: JAYDEN Henry Nursery Nurse:: Gayle García RN Apartment Manager/ACCIDENT REPORT CLERK: Halley Archer CST Apartment Manager/ACCIDENT REPORT CLERK: Antonette White UTILITY APPRAISER MATERNAL INFORMATION Delivery Anesthesia: Spinal Medications After Delivery: Pitocin Drip 20 Units/1000ml NSS; Cytotec 1000mcg Per Rectum/Vagina Estimated Blood Loss (ml): 700 Delivery QBL: 700 Maternal Complications: Other Complication Details: Pre eclampsia LABOR SUMMARY EDC: 11/02/2019 00:00 No. Babies in Womb: 1 Attempted: No LABOR INFORMATION Reason for Induction: Not Applicable Cervical Ripening Agents: Cervidil Oxytocin: N/A Group B Beta Strep: negative Steroids Given: Full Course; < 24 Hours before Delivery STAGES OF LABOR Stage 3 hr: 0 Stage 3 min: 1 CSECTION DELIVERY Primary Indication: Severe PIH, Unfavorable Cervix CSection Urgency: Non-Scheduled CSection Incidence: Primary Labor: N/A Elective: Elective CSection Incision: Lower Uterine Transverse BABY A INFORMATION Infant Delivery Date/Time: 09/22/2019 17:06 Method of Delivery: Nurse Controlled Delivery: No Born in Route : No : N/A Forceps: N/A Vacuum Extraction: N/A Shoulder Dystocia : No PRESENTATION/POSITION BABY A Presentation: Cephalic Cephalic Presentation: Vertex PLACENTA INFORMATION BABY A Placenta Delivery Time : 09/22/2019 17:07 Placenta Method of Delivery: Manual Removal Placenta Status: Delivered SCORES BABY A Heart Rate 1 min: >100 bpm Resp Effort 1 min: Good Cry Reflex Irritability 1 min: Cough or Sneeze or Pulls Away Muscle Tone 1 min: Active Motion Color 1 min: Blue/Pale Resuscitation Effort 1 min: Tactile Stimulation SCORE 1 MIN: 8 Heart Rate 5 min: >100 bpm Resp Effort 5 min: Good Cry Reflex Irritability 5 min: Cough or Sneeze or Pulls Away Muscle Tone 5 min: Active Motion Color 5 min: Body [place], Extremities Blue Resuscitation Effort 5 min: Tactile Stimulation SCORE 5 MIN: 9 INFANT INFORMATION BABY A Gestational Age at Delivery: 34.0 Gestational Status: Late - 34- 36.6 Weeks Outcome : Liveborn Infant Condition : Stable Sex: Female IDENTIFICATION BABY A Infant Verification Date/Time: 09/22/2019 17:06 ID Band Number: [id number] Mother's Name Verified: Yes RN Verifying : J Neibler RN WEIGHT/LENGTH BABY A Infant Birthweight (gm): 2100 Infant Weight (lb): 4 Infant Weight (oz): 10 Length (in): 18.00 Length (cm): 45.72 CORD INFORMATION BABY A No. Cord Vessels: 3 Nuchal Cord : Around Neck x1, Loose Nuchal Cord- Other: body cord Cord Blood Taken: Yes-For Eval (Mom's Blood Type - or O+) Infant Suction: None ASSESSMENT BABY A Infant Complications: Other Infant Complications- Other: see nursery note Physical Findings at Delivery: Other Physical Findings- Other: see nursery note Care By: Zana García RN Transferred To: [facility]
[2019-09-22 21:38] LABS: ABSOLUTE BASOPHILS # (AUTO) 0.1 10^3/uL (0.0-0.2); ABSOLUTE EOSINOPHILS # (AUTO) 0.1 10^3/uL (0.0-0.6); ABSOLUTE LYMPHOCYTES (AUTO) 3.3 10^3/uL (0.5-4.7); ABSOLUTE MONOCYTES (AUTO) 1.2 10^3/uL (0.1-1.4); ABSOLUTE NEUT (AUTO) 15.3 10^3/uL (1.7-8.2); BASOPHILS % (AUTO) 0.3 % (0-2); EOSINOPHILS % (AUTO) 0.3 % (0-6); HEMATOCRIT 33.6 % (36.0-47.0); HEMOGLOBIN 11.6 g/dL (12.0-15.5); LYMPHOCYTES % (AUTO) 16.7 % (13-45); MEAN CORPUSCULAR HGB CONC 34.6 g/dL (32.0-36.0); MEAN CORPUSCULAR VOLUME 87 fl (80-97); MONOCYTES % (AUTO) 5.8 % (3-13); PLATELET COUNT 207 10^3/uL (150-450); RED BLOOD COUNT 3.87 10^6/uL (3.72-5.28); RED CELL DISTRIBUTION WIDTH 12.8 % (11.5-14.0); SEGMENTED NEUTROPHILS % (AUTO) 76.9 % (42-78); TOTAL CELLS COUNTED % (AUTO) 100 %; WHITE BLOOD COUNT 19.8 10^3/uL (4.0-10.5)
[2019-09-22] MEDS ORDERED: KETOROLAC TROMETHAMINE INJ/PF 30 MG/1 ML SDV IV SCH (22:00)
[2019-09-22 22:05] LABS: ALKALINE PHOSPHATASE 139 U/L (38-126); ANION GAP 5 (5-19); ASPARTATE AMINO TRANSFERASE 50 U/L (14-36); BILIRUBIN,TOTAL 0.5 mg/dL (0.2-1.3); BLOOD UREA NITROGEN 12 mg/dL (7-20); CALCIUM 8.1 mg/dL (8.4-10.2); CARBON DIOXIDE 22 mmol/L (22-30); CHLORIDE 105 mmol/L (98-107); GLUCOSE 78 mg/dL (75-110); TOTAL PROTEIN 5.8 g/dL (6.3-8.2); URIC ACID 5.6 mg/dL (2.5-6.2)
[2019-09-23] MEDS ORDERED: OXYCODONE-ACETAMINOPHEN 5-325 MG TABLET ONE (00:22)
[2019-09-23] MEDS: OXYCODONE-ACETAMINOPHEN 5-325 MG TABLET PO PRN ×4 (00:24→21:57)
[2019-09-23] MEDS ORDERED: KETOROLAC TROMETHAMINE INJ/PF 30 MG/1 ML SDV ONE ×2 (02:04→09:38)
[2019-09-23] MEDS: KETOROLAC TROMETHAMINE INJ/PF 30 MG/1 ML SDV IV SCH ×2 (02:07→10:08)
[2019-09-23] MEDS ORDERED: MAGNESIUM SULFATE 20 GM/500 ML RTUINJ IV ONE (05:00)
[2019-09-23] MEDS ORDERED: LABETALOL HCL 200 MG TABLET ONE (06:01)
[2019-09-23] MEDS: LABETALOL HCL 200 MG TABLET PO SCH ×3 (06:04→21:57)
[2019-09-23] MEDS ORDERED: HYDROMORPHONE HCL INJ/PF 2 MG/ML AMPULE ONE (06:08)
[2019-09-23 06:52] LABS: HEMATOCRIT 29.9 % (36.0-47.0); HEMOGLOBIN 10.5 g/dL (12.0-15.5); MEAN CORPUSCULAR HEMOGLOBIN 30.3 pg (27.0-33.4); MEAN CORPUSCULAR HGB CONC 35.1 g/dL (32.0-36.0); MEAN CORPUSCULAR VOLUME 86 fl (80-97); PLATELET COUNT 201 10^3/uL (150-450); RED BLOOD COUNT 3.46 10^6/uL (3.72-5.28); RED CELL DISTRIBUTION WIDTH 12.7 % (11.5-14.0); WHITE BLOOD COUNT 15.3 10^3/uL (4.0-10.5)
[2019-09-23] MEDS ORDERED: DOCUSATE SODIUM 100 MG CAPSULE ONE (09:38)
[2019-09-23] MEDS ORDERED: PRENATAL VITAMIN W DHA CAPSULE PO ONE (09:38)
[2019-09-23] MEDS ORDERED: NIFEDIPINE 30 MG TAB.ER.24 PO ONE (09:38)
[2019-09-23] MEDS ORDERED: PRENATAL VITAMIN W DHA CAPSULE PO SCH (10:00)
[2019-09-23] MEDS: PRENATAL VITAMIN W DHA CAPSULE PO SCH (10:06)
[2019-09-23] MEDS: NIFEDIPINE 30 MG TAB.ER.24 PO SCH (10:06)
[2019-09-23] MEDS: DOCUSATE SODIUM 100 MG CAPSULE PO SCH ×2 (10:07→17:49)
[2019-09-23] MEDS: IBUPROFEN 800 MG TABLET PO SCH ×2 (11:50→17:48)
[2019-09-24 05:37] LABS: HEPATITIS C VIRUS AB 0.1 s/co ratio (0.0-0.9)
[2019-09-24] MEDS: IBUPROFEN 800 MG TABLET PO SCH ×4 (06:23→23:33)
[2019-09-24] MEDS: LABETALOL HCL 200 MG TABLET PO SCH ×3 (06:25→22:26)
[2019-09-24] MEDS: NIFEDIPINE 30 MG TAB.ER.24 PO SCH (10:07)
[2019-09-24] MEDS: PRENATAL VITAMIN W DHA CAPSULE PO SCH (10:07)
[2019-09-24] MEDS: DOCUSATE SODIUM 100 MG CAPSULE PO SCH ×2 (10:07→18:25)
--- NOTE | 2019-09-24 11:16 | PDOC PROGRESS REPORT ---
Subjective-OB Progress Note for:: 09/24/19 Subjective: Pt doing well, no concerns. She has been out of bed to void. Reports light bleeding, reg diet and +flatus. She is tearful about baby having to stay longer and the fact that she's been here so long. Physical Exam (OB) Vital Signs: Temp Pulse Resp BP Pulse Ox 97.9 F 90 16 128/70 H 99 09/24/19 07:31 09/24/19 07:31 09/24/19 07:31 09/24/19 07:31 09/24/19 07:31 Intake & Output 09/23/19 09/24/19 09/25/19 06:59 06:59 06:59 Intake Total 199 Output Total 1800 Balance -1601 - PIH/Pre-Eclampsia DTR's: 2 + Clonus: Negative Headache: Absent Epigastric Pain: No Visual Changes: No - Dressing Removed: No - surgiglue Incision: Well Approximated Closure Type: Surgical Glue - Lochia Lochia Amount: Scant < 10 ml Lochia Color: Rubra/Red - Abdomen Description: Tender, Soft Hernia Present: No Fundal Description: Firm, Midline Fundal Height: u/u - u/2 Objective-Diagnostic Laboratory: 09/23/19 06:19 09/22/19 21:28 Assessment and Plan(PN) - Assessment and Plan (1) 34 weeks gestation of Is this a current diagnosis for this admission?: Yes (2) S/P primary low transverse Is this a current diagnosis for this admission?: Yes (3) Severe pre-eclampsia Qualifiers: Trimester: third trimester Qualified Code(s): O14.13 - Severe pre- eclampsia, third trimester Is this a current diagnosis for this admission?: Yes - Time Spent with Patient Time with patient: Less than 15 minutes Medications reviewed and adjusted accordingly: Yes - Disposition Anticipated Discharge: Home Within: within 24 hours, within 48 hours
[2019-09-24] MEDS: OXYCODONE-ACETAMINOPHEN 5-325 MG TABLET PO PRN (14:30)
[2019-09-25] MEDS: LABETALOL HCL 200 MG TABLET PO SCH (05:24)
[2019-09-25] MEDS: IBUPROFEN 800 MG TABLET PO SCH ×2 (05:24→11:42)
--- NOTE | 2019-09-25 09:50 | PDOC DISCHARGE SUMMARY ---
Impression - Admit/DC Date/PCP Admission Date/Primary Care Provider: 09/14/19 14:27 Discharge Date: 09/25/19 - Discharge Diagnosis (1) 34 weeks gestation of Is this a current diagnosis for this admission?: Yes (2) S/P primary low transverse Is this a current diagnosis for this admission?: Yes (3) Severe pre-eclampsia Is this a current diagnosis for this admission?: Yes - Additional Information Resuscitation Status: Full Code Discharge Diet: Regular Discharge Activity: Balance Activity w/Rest, Pelvic Rest Prescriptions: Oxycodone HCl/Acetaminophen [Percocet 5-325 mg Tablet] 1 tab PO Q4HP PRN #30 tablet PRN Reason: For Pain Scale 3-5 Ibuprofen [Motrin 800 mg Tablet] 800 mg PO Q8HP PRN #60 tablet PRN Reason: Docusate Sodium [Colace 100 mg Capsule] 100 mg PO BID #60 capsule Labetalol HCl [Normodyne 200 mg Tablet] 100 mg PO BID #60 tablet Nifedipine [Procardia XL 30 mg Tablet] 60 mg PO DAILY #30 tab.er.24 Home Medications: Vit/Dha [ Multi + Dha Capsule] 1 cap PO DAILY 09/14/19 Docusate Sodium [Colace 100 mg Capsule] 100 mg PO BID #60 capsule 09/25/19 Ibuprofen [Motrin 800 mg Tablet] 800 mg PO Q8HP PRN #60 tablet 09/25/19 Labetalol HCl [Normodyne 200 mg Tablet] 100 mg PO BID #60 tablet 09/25/19 Nifedipine [Procardia XL 30 mg Tablet] 60 mg PO DAILY #30 tab.er.24 09/25/19 Oxycodone HCl/Acetaminophen [Percocet 5-325 mg Tablet] 1 tab PO Q4HP PRN #30 tablet 09/25/19 HPI Reason(s) for Admission: Obstetric Complications, PIH Procedures: NST, Ultrasound, Management of Obstetric Complications Intrapartum Procedure(s): : Low Cervical, Transverse Results Laboratory Results: WBC 15.3 10^3/uL (4.0-10.5) H 09/23/19 06:19 RBC 3.46 10^6/uL (3.72-5.28) L 09/23/19 06:19 Hgb 10.5 g/dL (12.0-15.5) L 09/23/19 06:19 Hct 29.9 % (36.0-47.0) L 09/23/19 06:19 MCV 86 fl (80-97) 09/23/19 06:19 MCH 30.3 pg (27.0-33.4) 09/23/19 06:19 MCHC 35.1 g/dL (32.0-36.0) 09/23/19 06:19 RDW 12.7 % (11.5-14.0) 09/23/19 06:19 Plt Count 201 10^3/uL (150-450) 09/23/19 06:19 Lymph % (Auto) 16.7 % (13-45) 09/22/19 21:28 Ray % (Auto) 5.8 % (3-13) 09/22/19 21:28 Eos % (Auto) 0.3 % (0-6) 09/22/19 21:28 Baso % (Auto) 0.3 % (0-2) 09/22/19 21:28 Absolute Neuts (auto) 15.3 10^3/uL (1.7-8.2) H 09/22/19 21:28 Absolute Lymphs (auto) 3.3 10^3/uL (0.5-4.7) 09/22/19 21:28 Absolute Monos (auto) 1.2 10^3/uL (0.1-1.4) 09/22/19 21:28 Absolute Eos (auto) 0.1 10^3/uL (0.0-0.6) 09/22/19 21:28 Absolute Basos (auto) 0.1 10^3/uL (0.0-0.2) 09/22/19 21:28 Total Counted 100 09/16/19 11:48 Seg Neutrophils % 76.9 % (42-78) 09/22/19 21:28 Seg Neuts % (Manual) 61 % (42-78) 09/16/19 11:48 Lymphocytes % (Manual) 21 % (13-45) 09/16/19 11:48 Atypical Lymphs % 4 % (0) 09/16/19 11:48 Monocytes % (Manual) 13 % (3-13) 09/16/19 11:48 Eosinophils % (Manual) 1 % (0-6) 09/16/19 11:48 Basophils % (Manual) 0 % (0-2) 09/16/19 11:48 Abs Neuts (Manual) 8.3 10^3/uL (1.7-8.2) H 09/16/19 11:48 Abs Lymphs (Manual) 3.4 10^3/uL (0.5-4.7) 09/16/19 11:48 Abs Monocytes (Manual) 1.8 10^3/uL (0.1-1.4) H 09/16/19 11:48 Absolute Eos (Manual) 0.1 10^3/uL (0.0-0.6) 09/16/19 11:48 Abs Basophils (Manual) 0.0 10^3/uL (0.0-0.2) 09/16/19 11:48 Platelet Comment ADEQUATE 09/16/19 11:48 Polychromasia SLIGHT 09/16/19 11:48 Anisocytosis SLIGHT 09/16/19 11:48 Sodium 132.1 mmol/L (137-145) L 09/22/19 21:28 Potassium 4.0 mmol/L (3.6-5.0) 09/22/19 21:28 Chloride 105 mmol/L (98-107) 09/22/19 21:28 Carbon Dioxide 22 mmol/L (22-30) 09/22/19 21:28 Anion Gap 5 (5-19) 09/22/19 21:28 BUN 12 mg/dL (7-20) 09/22/19 21:28 Creatinine 0.58 mg/dL (0.52-1.25) 09/22/19 21:28 Est GFR ( Amer) > 60 (>60) 09/22/19 21:28 Est GFR (MDRD) Non-Af > 60 (>60) 09/22/19 21:28 Glucose 78 mg/dL (75-110) 09/22/19 21:28 Uric Acid 5.6 mg/dL (2.5-6.2) 09/22/19 21:28 Calcium 8.1 mg/dL (8.4-10.2) L 09/22/19 21:28 Total Bilirubin 0.5 mg/dL (0.2-1.3) 09/22/19 21:28 Direct Bilirubin 0.0 mg/dL (0.0-0.4) 09/22/19 21:28 Neonat Total Bilirubin Not Reportable 09/22/19 21:28 Neonat Direct Bilirubin Not Reportable 09/22/19 21:28 Neonat Indirect Bili Not Reportable 09/22/19 21:28 AST 50 U/L (14-36) H 09/22/19 21:28 ALT 37 U/L (<35) H 09/22/19 21:28 Alkaline Phosphatase 139 U/L (38-126) H 09/22/19 21:28 Lactate Dehydrogenase 368 U/L (120-246) H 09/22/19 21:28 Total Protein 5.8 g/dL (6.3-8.2) L 09/22/19 21:28 Albumin 3.0 g/dL (3.5-5.0) L 09/22/19 21:28 Ur 24 Hour Volume 2900 mL 09/20/19 09:58 Urine Creatinine 38.8 mg/dL (16-327) 09/20/19 09:58 Ur Creatinine mg/24hr 1.1 mg/day (0.8-2.0) 09/20/19 09:58 Ur Total Protein 24 Hr 2825 mg/day (42-225) H 09/20/19 09:58 Protein/Creatinin Ratio 0.6 mg/mg (0.0-0.2) H 09/15/19 16:10 Urine Total Protein 97.4 mg/dL (<12) H 09/20/19 09:58 Urine Opiates Screen NEGATIVE 09/15/19 16:10 Urine Methadone Screen NEGATIVE 09/15/19 16:10 Ur Barbiturates Screen NEGATIVE 09/15/19 16:10 Ur Phencyclidine Scrn NEGATIVE 09/15/19 16:10 Ur Amphetamines Screen NEGATIVE 09/15/19 16:10 U Benzodiazepines Scrn NEGATIVE 09/15/19 16:10 Urine Cocaine Screen NEGATIVE 09/15/19 16:10 U Marijuana (THC) Screen NEGATIVE 09/15/19 16:10 Hepatitis C (POLLO) 0.1 s/co ratio (0.0-0.9) 09/22/19 21:28 Hep C Verif Com 1 Comment (.) 09/22/19 21:28 Blood Type O POSITIVE 09/22/19 09:47 Antibody Screen NEGATIVE 09/22/19 09:47 Impressions: Obstetrics Ultrasound 09/15/19 11:24 IMPRESSION: LIMITED OBSTETRICAL ULTRASOUND WITH MEASURED PARAMETERS DELINEATED ABOVE. Trimester of : Third trimester - 28 weeks to delivery. Plan Plan of Treatment: f/u at [facility] next week for BP check Time Spent: Less than 30 Minutes
[2019-09-25] MEDS: DOCUSATE SODIUM 100 MG CAPSULE PO SCH (09:56)
[2019-09-25] MEDS: PRENATAL VITAMIN W DHA CAPSULE PO SCH (09:56)
[2019-09-25] MEDS ORDERED: NIFEDIPINE 30 MG TAB.ER.24 PO SCH (10:00)
[2019-09-25 15:20] VITALS: BP 129/81
== END 2019-09-25 17:35 | disposition home or self-care (01) | DRG 788 ==
LOC: LR 14:27 → 2S 09-15 11:25 → LR 09-17 20:59 → 2S 09-19 14:39 → LR 09-20 23:04 → 2S 09-23 11:00
PROVIDERS: ADMIT Obstetrics & Gynecology; ATTEND Student in an Organized Health Care Education/Training Program
PROC: 10D00Z1 Extraction of Products of Conception, Low, Open Approach (ICD-10-PCS; principal; 2019-09-22)
DX: O14.14 Severe pre-eclampsia complicating childbirth (principal); O69.1XX0 Labor and delivery complicated by cord around neck, with compression, not applicable or unspecified; O62.2 Other uterine inertia; Z37.0 Single live birth; Z3A.34 34 weeks gestation of pregnancy
CPT/HCPCS: 1961; 36415; 59025; 76815; 80053; 80307; 82570; 83615; 84156; 84550; 85025; 85027; 86803; 86804; 86850; 86900; 86901; 87070; 88307; 94760; 94799; J0360; J0690; J1170; J1885; J2250; J2270; J2370; J2405; J2590; J3010; J3475; J3490; J7060